=== PATIENT | female | born 1960 | race Caucasian/White ===

== ENCOUNTER → 2020-04-05 13:24 | Outpatient (CLI) | payer OTHER, SELFPAY ==
--- NOTE | ~2020-04-05 | MM_ITS ---
EXAMINATION: MM screening james BI w matt HISTORY: Screening mammogram, family history of breast cancer in her mother. TECHNIQUE: Craniocaudal and mediolateral oblique 3-D tomosynthesis images were obtained and synthetic 2-D images were generated. CAD analysis was submitted and interpreted. COMPARISON: 11/30/2018, 11/26/2017, 11/04/2016 BREAST PARENCHYMAL COMPOSITION: The breasts are heterogeneously dense, which may obscure small masses . FINDINGS: There is no evidence of suspicious mass, calcification, or architectural distortion to sugg est malignancy in either breast. There has been no suspicious interval change. IMPRESSION: 1. No mammographic evidence of malignancy. 2. Recommend routine screening mammography in one year. BI-RADS Category 1: Negative Reviewed, dictated and finalized at location A.
== END ==
PROVIDERS: Visit Provider Nurse Practitioner
DX: Z12.31 Encounter for screening mammogram for malignant neoplasm of breast (principal)
CPT/HCPCS: 77063; 77067

== ENCOUNTER → 2020-05-19 12:29 | Outpatient (CLI) | payer OTHER, SELFPAY ==
--- NOTE | ~2020-05-19 | XR_ITS ---
EXAMINATION: XR elbow LT 2V DATE: 05/19/2020 13:00 INDICATION: Left elbow pain. TECHNIQUE: 2 views of left elbow were obtained. COMPARISON: None. FINDINGS: Bone alignment is normal. No fracture. Joint spaces are well maintained. There is no elbow joint effusion. IMPRESSION: 1. Normal left elbow. Reviewed, dictated and finalized at location A. IMPRESSION: 1. Normal left elbow.
== END ==
PROVIDERS: PCP Emergency Medicine; Visit Provider Emergency Medicine
DX: M25.522 Pain in left elbow (principal)
CPT/HCPCS: 73070

== ENCOUNTER → 2020-11-13 13:04 | Outpatient (CLI) | payer OTHER, SELFPAY ==
--- NOTE | ~2020-11-13 | DEXA_ITS ---
Bone Density Report Name: Theresa Way Age: 60 Sex: Female Ethnicity: White Date of : 1960 Indication: postmenopausal osteoporosis; monitoring treatment; asthma or emphysema; Referring Provider: oSledad, Li Study: Bone densitometry was performed. Exam Date: November 13, 2020 Accession number: [id number] Bone Density: Region BMD T-score Z-score Classification AP Spine (L1-L4) 0.772 -2.5 -1.2 Osteoporosis Femoral Neck (Left) 0.588 -2.4 -1.1 Osteopenia Total Hip (Left) 0.725 -1.8 -0.9 Osteopenia Femoral Neck (Right) 0.600 -2.2 -1.0 Osteopenia Total Hip (Right) 0.710 -1.9 -1.0 Osteopenia Total Hip Mean 0.718 -1.9 -1.0 Osteopenia World Health Organization criteria for BMD impression classify patients as: Normal (T-score at or above -1.0), Osteopenia (T-score between -1.0 and -2.5), or Osteoporosis (T-score at or below -2.5). 10-year Fracture Risk: FRAX not reported because: Some T-score for Spine Total or Hip Total or Femoral Neck at or below -2.5 Treated for osteoporosis Previous Exams: Region Exam Age BMD T-score BMD Change BMD Change Date g/cm2 vs Baseline vs Previous AP Spine(L1-L4) 11/13/2020 60 0.772 -2.5 0.086* 0.053* 10/07/2018 58 0.718 -3.0 0.033* -0.011 09/04/2016 55 0.730 -2.9 0.044* 0.044* 08/08/2014 53 0.685 -3.3 Total Hip(Left) 11/13/2020 60 0.725 -1.8 0.047* 0.020 10/07/2018 58 0.705 -1.9 0.027 0.005 09/04/2016 55 0.700 -2.0 0.022 0.022 08/08/2014 53 0.678 -2.2 Total Hip(Right) 11/13/2020 60 0.710 -1.9 0.013 -0.008 10/07/2018 58 0.718 -1.8 0.020 -0.008 09/04/2016 55 0.725 -1.8 0.028* 0.028* 08/08/2014 53 0.697 -2.0 *Denotes significance at 95% confidence level, LSC for AP Spine = 0.022 g/cm2, LSC for Total Hip = 0.027 g/cm2 Clinical Information Provided by Patient: Is being treated for osteoporosis Has used the following medications: Forteo (i.e. parathyroid hormone), Vitamin D, Calcium Has the following medical conditions: Asthma or Emphysema Patient maximum height was 61.9 Menopause Age: 45 Drinks caffeinated beverages Onset of menses at age 14 Number of children 2 Impression: The patient has osteoporosis, based on the Total Spine T-score. No significant bone loss was observed. Discuss
== END ==
PROVIDERS: PCP Emergency Medicine; Visit Provider Nurse Practitioner
DX: M81.0 Age-related osteoporosis without current pathological fracture (principal); M16.0 Bilateral primary osteoarthritis of hip
CPT/HCPCS: 77080

== ENCOUNTER 2021-01-08 10:27 | Outpatient (CLI) | payer OTHER, SELFPAY | END 2021-01-08 10:28 | disposition home or self-care (01) | LOC: ANHCOVIDVC 10:27 | PROVIDERS: PCP Emergency Medicine | DX: Z23 Encounter for immunization (principal) | CPT/HCPCS: 0001A; 91300 ==

== ENCOUNTER 2021-01-29 09:24 | Outpatient (CLI) | payer OTHER, SELFPAY | END 2021-01-29 09:25 | disposition home or self-care (01) | LOC: ANHCOVIDVC 09:24 | PROVIDERS: PCP Emergency Medicine | DX: Z23 Encounter for immunization (principal) | CPT/HCPCS: 0002A; 91300 ==

== ENCOUNTER → 2021-04-09 10:16 | Outpatient (CLI) | payer OTHER, SELFPAY ==
--- NOTE | ~2021-04-09 | MM_ITS ---
EXAMINATION: MM screening james BI w matt HISTORY: Screening mammogram, family history of breast cancer in her mother. TECHNIQUE: Craniocaudal and mediolateral oblique 3-D tomosynthesis images were obtained and synthetic 2-D images were generated. CAD analysis was submitted and interpreted. COMPARISON: 04/05/2020, 11/30/2018, 11/26/2017 BREAST PARENCHYMAL COMPOSITION: The breasts are heterogeneously dense, which may obscure small masses . FINDINGS: There is no evidence of suspicious mass, calcification, or architectural distortion to sugg est malignancy in either breast. There has been no suspicious interval change. IMPRESSION: 1. No mammographic evidence of malignancy. 2. Recommend routine screening mammography in one year. BI-RADS Category 1: Negative Reviewed, dictated and finalized at location A.
== END ==
PROVIDERS: Visit Provider Nurse Practitioner
DX: Z12.31 Encounter for screening mammogram for malignant neoplasm of breast (principal)
CPT/HCPCS: 77063; 77067

== ENCOUNTER → 2021-09-12 10:46 | Outpatient (CLI) | payer OTHER, SELFPAY ==
--- NOTE | ~2021-09-12 | XR_ITS ---
EXAMINATION: XR chest 2V DATE: 09/12/2021 11:06 INDICATION: Cough and shortness of breath TECHNIQUE: PA and lateral views of the chest are obtained. COMPARISON: None available FINDINGS: The lungs are free of acute opacities. There is no pleural effusion or pneumothorax. The ca rdiomediastinal silhouette is normal. There is moderate thoracic spondylosis. IMPRESSION: 1. No acute cardiopulmonary abnormality. Reviewed, dictated and finalized at location A. 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
== END ==
PROVIDERS: PCP Emergency Medicine; Visit Provider Emergency Medicine
DX: R05.9 Cough, unspecified (principal); M47.814 Spondylosis without myelopathy or radiculopathy, thoracic region
CPT/HCPCS: 71046

== ENCOUNTER → 2022-04-29 12:44 | Outpatient (CLI) | payer OTHER, SELFPAY ==
--- NOTE | ~2022-04-29 | MM_ITS ---
EXAMINATION: MM screening james BI w matt HISTORY: Screening TECHNIQUE: Craniocaudal and mediolateral oblique 3-D tomosynthesis images were obtained and synthetic 2-D images were generated. CAD analysis was submitted and interpreted. COMPARISON: Comparison to multiple prior studies sequentially, with oldest reviewed study dated 10/18. BREAST PARENCHYMAL COMPOSITION: The breasts are heterogeneously dense, which may obscure small masses . FINDINGS: There is no evidence of suspicious mass, calcification, or architectural distortion to sugg est malignancy in either breast. There has been no suspicious interval change. IMPRESSION: 1. No mammographic evidence of malignancy. 2. Recommend routine screening mammography in one year. BI-RADS Category 1: Negative Reviewed, dictated and finalized at location A.
== END ==
PROVIDERS: PCP Emergency Medicine; Visit Provider Nurse Practitioner
DX: Z12.31 Encounter for screening mammogram for malignant neoplasm of breast (principal)
CPT/HCPCS: 77063; 77067

== ENCOUNTER → 2022-11-14 10:19 | Outpatient (CLI) | payer OTHER, SELFPAY ==
--- NOTE | ~2022-11-14 | DEXA_ITS ---
Bone Density Report Name: XIOMARA AYON Age: 62 Sex: Female Ethnicity: White Date of : 1960 Indication: postmenopausal osteoporosis; monitoring treatment; asthma or emphysema; Referring Provider: Soledad, Li Study: Bone densitometry was performed. Exam Date: November 14, 2022 Accession number: [id number] Bone Density: Region BMD T-score Z-score Classification AP Spine (L1-L4) 0.709 -3.1 -1.6 Osteoporosis Femoral Neck (Left) 0.542 -2.8 -1.4 Osteoporosis Total Hip (Left) 0.672 -2.2 -1.2 Osteopenia Femoral Neck (Right) 0.582 -2.4 -1.1 Osteopenia Total Hip (Right) 0.706 -1.9 -0.9 Osteopenia Total Hip Mean 0.689 -2.1 -1.1 Osteopenia World Health Organization criteria for BMD impression classify patients as: Normal (T-score at or above -1.0), Osteopenia (T-score between -1.0 and -2.5), or Osteoporosis (T-score at or below -2.5). 10-year Fracture Risk: FRAX not reported because: Some T-score for Spine Total or Hip Total or Femoral Neck at or below -2.5 Treated for osteoporosis Previous Exams: Region Exam Age BMD T-score BMD Change BMD Change Date g/cm2 vs Baseline vs Previous AP Spine(L1-L4) 11/14/2022 62 0.709 -3.1 0.023* -0.063* 11/13/2020 60 0.772 -2.5 0.086* 0.053* 10/07/2018 58 0.718 -3.0 0.033* -0.011 09/04/2016 55 0.730 -2.9 0.044* 0.044* 08/08/2014 53 0.685 -3.3 Total Hip(Left) 11/14/2022 62 0.672 -2.2 -0.006 -0.053* 11/13/2020 60 0.725 -1.8 0.047* 0.020 10/07/2018 58 0.705 -1.9 0.027 0.005 09/04/2016 55 0.700 -2.0 0.022 0.022 08/08/2014 53 0.678 -2.2 Total Hip(Right) 11/14/2022 62 0.706 -1.9 0.009 -0.004 11/13/2020 60 0.710 -1.9 0.013 -0.008 10/07/2018 58 0.718 -1.8 0.020 -0.008 09/04/2016 55 0.725 -1.8 0.028* 0.028* 08/08/2014 53 0.697 -2.0 *Denotes significance at 95% confidence level, LSC for AP Spine = 0.022 g/cm2, LSC for Total Hip = 0.027 g/cm2 Clinical Information Provided by Patient: Is being treated for osteoporosis Has used the following medications: Prolia (i.e. denosumab), Vitamin D, Calcium, MTV Has the following medical conditions: Asthma or Emphysema Patient maximum height was 61.9 Menopause Age: 45 Drinks caffeinated beverages Onset of menses at age 14 Number of children 2 -
== END ==
PROVIDERS: PCP Nurse Practitioner; Visit Provider Nurse Practitioner
DX: Z78.0 Asymptomatic menopausal state (principal); M85.89 Other specified disorders of bone density and structure, multiple sites; M81.0 Age-related osteoporosis without current pathological fracture
CPT/HCPCS: 77080

== ENCOUNTER → 2023-07-16 11:28 | Outpatient (CLI) | payer OTHER, SELFPAY ==
--- NOTE | ~2023-07-16 | MM_ITS ---
EXAMINATION: MM screening james BI w matt HISTORY: Screening TECHNIQUE: Craniocaudal and mediolateral oblique 3-D tomosynthesis images were obtained and synthetic 2-D images were generated. CAD analysis was submitted and interpreted. COMPARISON: Comparison to multiple prior studies sequentially, with oldest reviewed study dated 02/2017. BREAST PARENCHYMAL COMPOSITION: The breasts are heterogeneously dense, which may obscure small masses . FINDINGS: There is no evidence of suspicious mass, calcification, or architectural distortion to sugg est malignancy in either breast. There has been no suspicious interval change. IMPRESSION: 1. No mammographic evidence of malignancy. 2. Recommend routine screening mammography in one year. BI-RADS Category 1: Negative Reviewed, dictated and finalized at location A.
== END ==
PROVIDERS: PCP Nurse Practitioner; Visit Provider Nurse Practitioner
DX: Z12.31 Encounter for screening mammogram for malignant neoplasm of breast (principal)
CPT/HCPCS: 77063; 77067

== ENCOUNTER 2024-05-26 10:53 | Outpatient (CLI) | payer OTHER, SELFPAY ==
--- NOTE | ~2024-05-26 | XR_ITS ---
Lumbosacral Spine: AP, oblique, and lateral views Clinical History: Pain Findings: The normal lordotic curve is maintained. The vertebral bodies and posterior elements are i ntact. The intervertebral disc spaces are preserved. There is mild facet arthropathy and lumbar spin e. The sacroiliac joints are normally outlined. Impression: Mild facet arthropathy throughout the lumbar spine. Reviewed, dictated and finalized at location . Impression: Mild facet arthropathy throughout the lumbar spine.
== END 2024-05-26 10:54 ==
PROVIDERS: PCP Obstetrics & Gynecology Gynecology; Visit Provider Emergency Medicine
DX: M47.896 Other spondylosis, lumbar region (principal)
CPT/HCPCS: 72110

== ENCOUNTER 2024-06-17 09:28 | Observation (INO) | payer OTHER, SELFPAY ==
[2024-06-17] VITALS (14 sets, daily range): BP systolic 125–172; BP diastolic 62–85; PULSE 68–98; RESP 16–20; TEMP 36.4–36.9; O2SAT 95–100; BMI 20.5
--- NOTE | ~2024-06-17 | CT_ITS ---
EXAMINATION: CT lumbar spine w con DATE: 06/17/2024 13:37 INDICATION: Back pain. TECHNIQUE: Computed tomography (CT) of the lumbar spine was performed with 100 mL Omnipaque 350 intra venous contrast. Automated exposure control and iterative reconstruction technique were employed. The dose-length product was 170.50 mGy-cm. COMPARISON: Lumbar spine radiographs 05/26/2024 FINDINGS: There is 4 degrees dextrocurvature of lumbar spine. There is diffuse osteopenia. There are scattered lytic lesions of bone including in the sacrum, L5 and L3 posterior elements, and L1 vertebr al body. There is a pathologic compression fracture of inferior plate of L1 with 2/5 loss of height. There is mildly decreased disc height at L1-L2 and L4-L5. The following disc levels are specifically discussed: L1-L2: The disc does not extend beyond the endplate margin. There is mild bilateral facet joint osteo arthritis. There is no neural foraminal stenosis. There is no central canal stenosis. L2-L3: The disc is bulging. There is mild bilateral facet joint osteoarthritis. There is mild bilater al neural foraminal stenosis. There is mild central canal stenosis. L3-L4: The disc is bulging. There is mild bilateral facet joint osteoarthritis. There is mild bilater al neural foraminal stenosis. There is mild central canal stenosis. L4-L5: The disc is bulging. There is moderate bilateral facet joint osteoarthritis. There is mild aleja ateral neural foraminal stenosis. There is mild central canal stenosis. L5-S1: The disc is bulging. There is mild lateral facet joint osteoarthritis. There is moderate bilat eral neural foraminal stenosis. There is mild central canal stenosis. IMPRESSION: 1. Widespread bone lesions, consistent with multiple myeloma versus metastatic disease. Pathologic co mpression fracture of L1. 2. Mild lumbar spondylosis. Reviewed, dictated and finalized at location A. IMPRESSION: 1. Widespread bone lesions, consistent with multiple myeloma versus metastatic disease. Pathologic compression fracture of L1. 2. Mild lumbar spondylosis.
--- NOTE | ~2024-06-17 | CT_ITS ---
EXAMINATION: CT chest abdomen pelvis w con DATE: 06/18/2024 08:37 INDICATION: Metastatic disease TECHNIQUE: Computed tomography (CT) of the chest, abdomen, and pelvis was performed with 100 mL Omnip aque-350 intravenous contrast. Automated exposure control and iterative reconstruction technique were employed. The dose-length product was 249.41 mGy-cm. COMPARISON: None FINDINGS: CHEST CT: Mild biapical pleural-parenchymal scarring. There are a few scattered <4 mm calcified and noncalcifie d pulmonary nodules. No pneumonia, pulmonary edema or pleural effusion. Heart size is normal. No casper cardial or pleural effusion. No pathologically enlarged thoracic lymphadenopathy. Moderate thoracic s pondylosis. There is diffuse osteopenia with multiple generally small scattered lytic bone lesions us ing a moth-eaten appearance to the bones at the axial and appendicular skeleton. ABDOMEN/PELVIS CT: There is a somewhat heterogeneous enhancement pattern to the liver with relatively diffuse nonmasslik e increased attenuation at the periphery of the liver most prominent at the caudal aspect of the righ t hepatic lobe with lower attenuation of the central liver when compared with the spleen suggesting d iffuse hepatic steatosis with focal peripheral sparing. There are 2 well-defined small low-attenuatio n hepatic cysts the largest measuring 1 cm in maximal diameter. Likely vicarious excreted contrast in the dependent aspect of the otherwise normal gallbladder. Spleen, pancreas, bilateral adrenal glands and kidneys are normal. Bowels including the appendix are normal. Bladder is normal. Atrophic uterus and bilateral adnexa are unremarkable. No free intraperitoneal gas or fluid. No pathologically enlar ged abdominal or pelvic lymphadenopathy. Similar diffuse osteopenia with moth-eaten appearance to the bones. There are also localized intramed ullary regions with greater than simple soft tissue density suggesting enhancing soft tissue most pro minent at the bilateral sacral ala, left anterior and posterior iliac spines, right posterior iliac s pine and right supra-acetabular regions suspicious for infiltrating process. There is a larger lytic lesion with central soft tissue density at the left inferior aspect of the L1 vertebral body with ass ociated likely pathologic localized inferior endplate compression fracture overlying the lytic lesion . There is also a lytic lesion eroding the cortices at the junction of the spinous process and pedicl es of L5 with extension of enhancing soft tissue beyond the margins of the bones consistent with kami gnancy. IMPRESSION: 1. Prominent diffuse osteopenia with numerous small lytic lesions giving a somewhat moth-eaten appear ance to the bones with associated patchy regions of enhancing marrow suspicious for one infiltrative osteolytic process most likely multiple myeloma although differential would include other metastatic disease. No lesion suspicious for primary malignancy however identified in the chest, abdomen or pelv is. Consider bone marrow biopsy for pathologic correlation. 2. A few scattered <4 mm calcified and noncalcified lung nodules most likely sequela of old granuloma tous disease. If the patient is low risk for lung cancer, no follow-up is needed. If the patient is h igh risk (i.e., history of smoking or asbestos or significant radiation exposure), optional follow-up chest CT could be considered at 12 months. 3. Diffuse hepatic steatosis with peripheral relative fatty sparing. Reviewed, dictated and finalized at location B. IMPRESSION: 1. Prominent diffuse osteopenia with numerous small lytic lesions giving a some what moth-eaten appearance to the bones with associated patchy regions of enhan cing marrow suspicious for one infiltrative osteolytic process most likely mult
--- NOTE | ~2024-06-17 | XR_ITS ---
COMPLETE BONE SURVEY Ordering provider: Eldon Whalen MD History: 63 years Female with . Bone metastasis . Comparison: FINDINGS: Chest: Normal. Cervical spine: Osteopenia of the bones. Degenerative changes with degenerative disc disease at the l evel of C5-C6. Osteolytic lesion seen in the spinous processes. Skeletal multiple lytic lesions suggestive of multiple myeloma in the skull, right humerus, left roberto gladys, right femur, left femur, thoracic spine, right radius, and left radius, IMPRESSION: 1. Multiple osteolytic lesion suggestive of multiple myeloma. Reviewed, dictated and finalized at location A.
[2024-06-17] MEDS: MORPHINE SULFATE (*CRX) 4 MG/ML INJ IV PUSH (11:11)
[2024-06-17] MEDS: methylPREDNISolone SOD SUCC 125 MG VIAL IV PUSH (11:12)
[2024-06-17 11:17] LABS: Basophils Percent Auto 1.1 % (0.2-1.2); Eosinophils Absolute Auto 0.1 K/mm3 (0-0.3); Eosinophils Percent Auto 1.4 % (0-4.4); Hematocrit 27.3 % (37.0-47.0); Hemoglobin 9.1 g/dL (12.0-15.0); Immature Granulocyte Absolute 0.02 K/mm3 (0.00-0.031); Immature Granulocyte Percent A 0.5 % (0-0.5); Lymphocytes Absolute Auto 1.07 K/mm3 (0.9-3.2); Lymphocytes Percent Auto 29.2 % (18.3-44.2); Mean Corpuscular HGB Conc 33.3 g/dl (32-36); Mean Corpuscular Hemoglobin 31.8 pg (26-34); Mean Corpuscular Volume 95.5 fl (80-100); Mean Platelet Volume 9.3 fl (7.4-10.4); Monocytes Absolute Auto 0.4 K/mm3 (0.1-0.6); Monocytes Percent Auto 11.7 % (2.6-8.5); Neutrophils Absolute Auto 2.1 K/mm3 (1.3-6.7); Neutrophils Percent Auto 56.1 % (45.5-73.1); Platelet Count Result 249 k/mm3 (150-375); Red Blood Count 2.86 M/mm3 (4.2-5.4); Red Cell Distribution Width 13.8 % (11.5-14.5); White Blood Count 3.7 K/mm3 (4.5-10.0)
[2024-06-17 12:31] LABS: Alanine Aminotransferase 26 U/L (6-35); Albumin Level 3.6 g/dL (3.5-5.1); Alkaline Phosphatase 77 U/L (38-126); Aspartate Amino Transferase 41 U/L (14-36); Bilirubin,Total 0.5 mg/dL (0.2-1.3); Blood Urea Nitrogen 20 mg/dL (7-17); Calcium 8.8 mg/dL (8.4-10.2); Carbon Dioxide 19 mmol/L (22-30); Chloride 98 mmol/L (98-107); Estimated CRCL calculation 36 ml/min; Estimated Glomerular Filt Rate 50; Glucose 111 mg/dL (65-110); Potassium 4.6 mmol/L (3.4-5.0)
[2024-06-17 12:39] LABS: Anion Gap 9 mmol/L (4-12); Sodium 126 mmol/L (137-145)
--- NOTE | 2024-06-17 12:56 | ED.BACK ---
HPI - Back Pain/Injury General Chief Complaint: Back Pain/Injury <Liset Rey APRN - Last Filed: 06/17/24 16:59> Stated Complaint: back pain, tingling left buttock <Liset Rey APRN - Last Filed: 06/17/24 16:59> Time Seen by Provider: 06/17/24 10:04 <Liset Rey APRN - Last Filed: 06/17/24 16:59> History of Present Illness HPI Narrative: Patient is a 63-year-old female who presents to the ER complaints of chronic back pain. She reports she was seen by her primary care doctor about a month ago and they diagnosed her with strain. Her provider put her Toradol but she has continued to have worsening pain. She has been diagnosed in the past with her osteoporosis and lower lumbar arthritis. Patient also reports she had a reaction to her osteoporosis medication back in August. She denies chest pain, shortness a breath or other signs of illness. <Liset Rey APRN - Last Filed: 06/17/24 16:59> MD elicited complaint: back pain <Liset Rey APRN - Last Filed: 06/17/24 16:59> Pertinent past history: prior back pain and arthritis <Liset Rey APRN - Last Filed: 06/17/24 16:59> Onset (ago): week(s) (5-6) <Liset Rey APRN - Last Filed: 06/17/24 16:59> Timing: constant <Liset Rey APRN - Last Filed: 06/17/24 16:59> Severity: severe <Liset Rey APRN - Last Filed: 06/17/24 16:59> Pain scale (0-10): 10 <Liset Rey APRN - Last Filed: 06/17/24 16:59> Similar Symptoms Previously: Yes <Liset Rey APRN - Last Filed: 06/17/24 16:59> Quality: crushing and throbbing <Liset Rey APRN - Last Filed: 06/17/24 16:59> Related Data Home Medications: Home Medications Medication Instructions Recorded Confirmed calcium carbonate (Calcium 500) 1,200 mg PO DAILY 05/17/20 06/17/24 cetirizine 10 mg tablet (Zyrtec) 10 mg PO DAILY 05/17/20 06/17/24 mirabegron 50 mg tablet,extended 50 mg PO DAILY 05/17/20 06/17/24 release 24 hr (Myrbetriq) budesonide-formoterol HFA 160 2 puff inhalation Q12H PRN short 06/17/24 06/17/24 mcg-4.5 mcg/actuation aerosol of breath inhaler cyclobenzaprine 5 mg tablet 5 mg PO TID PRN Muscle Spasm 06/17/24 06/17/24 fluticasone propionate 50 See Rx Instructions .Route 06/17/24 06/17/24 mcg/actuation nasal .COMPLEX PRN seasonal allergies spray,suspension naproxen 500 mg tablet 500 mg PO BID PRN Pain 06/17/24 06/17/24 <Liset Rey APRN - Last Filed: 06/17/24 16:59> Allergies/Adverse Reactions: Allergies Allergy/AdvReac Type Severity Reaction Status Date / Time Penicillins Allergy Unknown unknown Verified 06/17/24 18:32 nut - unspecified Allergy Itching Verified 06/17/24 18:32 <Liset Rey APRN - Last Filed: 06/17/24 16:59> Review of Systems Review of Systems: All systems reviewed & are unremarkable except as noted in HPI and below <Liset Rey APRN - Last Filed: 06/17/24 16:59> [facility] Past Medical History Medical History: Medical History Asthma Cataract, left eye Chronic frontal sinusitis Fatigue Mixed stress and urge urinary incontinence Osteoporosis Other bursal cyst, right ankle and foot Shingles (2022) Urticaria Vitamin D deficiency disease <Liset Rey APRN - Last Filed: 06/17/24 16:59> Surgical History Surgical History: Surgical History History of (1993) <Liset Rey APRN - Last Filed: 06/17/24 16:59> Social History Social History: Social History Smoking status: Never smoker Second hand tobacco smoke exposure: No Alcohol intake: current Drinks per week: 1 Substance use: current Substance use type: marijuana Other substance usage details: Takes half of a gummy for pain Do You
[2024-06-17] MEDS: SODIUM CHLORIDE 0.9% IV 1,000 ML 999 ML IV CONT (13:09)
[2024-06-17 14:09] LABS: Add Urine Microscopic? YES; Appearance Urine Clear (Clear); Bacteria Urine None Seen /hpf; Bilirubin Urine Negative (Negative); Blood Urine Trace (Negative); Color Urine Yellow (Yellow); Glucose Urine UA Negative (Negative); Ketones Urine Negative (Negative); Leukocyte Esterase Ur Negative LEU/UL (Negative); Nitrate Urine Negative (Negative); Non Pathogenic Casts 0-2; Protein Urine Trace mg/dL (Negative); RBC Urine 0-2 /hpf (0-2); Specific Grav Ur 1.014 (1.001-1.035); Squamous Epithelial Cell Urine None Seen /hpf (Few); Urobilinogen Urine 0.2 mg/dL (<2.0); WBC Urine 0-5 /hpf (0-3)
--- NOTE | 2024-06-17 17:49 | ADMGEN ---
This patient, Theresa Way, was admitted to [facility] Room 307-01. Patient/family oriented to hospital policies and general routines including ID bracelet, bed and alarms, visiting hours, pain management, procedures, bathroom and other care routines, personal items, smoking policy, room service/diet, and visiting hours. Information on how to activate the Rapid Response Team has been discussed. Patient/Family are encouraged to report perceived risks to care and to ask questions if they do not understand what they are told or what they should do.
--- NOTE | 2024-06-17 18:12 | PDONCCN ---
[facility] - Date of Consult Date/Time: 06/17/24 18:12 Requesting Physician: Chin Eubanks MD Primary Care Provider: Pooja Sandy MD - Consult Narrative Reason for consult: Bone metastasis Narrative: Theresa Way is a 63 year old female without any 5 previous history of malignancy but history of asthma chronic sinusitis osteoporosis came into the hospital with mid back pain started about 4-5 weeks ago treated with anti-inflammatory without much relief. This morning she was not able to move CT scan of the lumbar spine was performed that showed widespread bone lesions consistent with multiple myeloma versus metastatic disease along with pathological compression fracture of L1. She denies any history of smoking but was exposed to secondhand smoking from the mother. Her mother was also diagnosed with breast cancer. Patient had sister diagnosed with uterus cancer at age of 30. She denies any weight loss. Denies any diarrhea and constipation. No melena hematochezia denies any shortness of breath and chest pain. No neural and lymphadenopathy. No other new complaints. Review of Systems - Review of Systems All systems reviewed & are unremarkable except as noted in HPI and [facility] Medical History: Medical History (Last Reviewed 06/17/24 @ 16:29 by Liset Rey APRN) Asthma due to seasonal allergies Chronic frontal sinusitis Fatigue Mild intermittent asthma without complication Mixed stress and urge urinary incontinence Osteoporosis Other bursal cyst, right ankle and foot Urticaria Vitamin D deficiency disease - Social History Social History: Social History (Last Reviewed 06/17/24 @ 16:29 by Liset Rey APRN) Alcohol Use: Alcohol intake: current Smoking Status: Smoking status: Never smoker Second hand tobacco smoke exposure: No Social Determinants of Health: Do You Feel Safe in your Home?: Yes Has the Lack of Transportation Kept You From Medical Appointments or From Getting Medications?: No Within the Past 12 Months, Were You Worried Whether Your Food Would Run Out Before You Got Money to Buy More?: Never True What is Your Housing Situation Today?: I Have Housing Are You Worried That in the Next 2 Months, You May Not Have Your Own Housing to Live In?: No Do You Have Trouble Paying Your Heating Or Electricity Bill?: No Do You Have Trouble Paying For Medicines?: No Are You Currently Unemployed and Looking for Work?: No Highest Level of Education Completed: Trade/Vocational Certific Do You Have Trouble With Childcare or the Care of a Family Member?: No Exam - Vital Signs Vital Signs - 24 hr 06/17/24 09:36 06/17/24 11:19 06/17/24 09:44 Temperature 36.6 C Pulse Rate 75 82 70 Respiratory Rate 16 20 18 Blood Pressure 131/67 146/69 H 131/67 Pulse Oximetry 100 99 100 Oxygen Delivery Room Air 06/17/24 10:31 06/17/24 11:01 06/17/24 11:31 Temperature Pulse Rate 68 77 70 Respiratory Rate 18 20 20 Blood Pressure 139/67 146/69 H 138/66 Pulse Oximetry 100 100 99 Oxygen Delivery 06/17/24 12:01 06/17/24 13:01 06/17/24 13:58 Temperature Pulse Rate 68 77 77 Respiratory Rate 16 18 18 Blood Pressure 125/69 137/63 134/68 Pulse Oximetry 98 100 100 Oxygen Delivery 06/17/24 14:31 06/17/24 15:31 06/17/24 17:45 Temperature 36.9 C Pulse Rate 98 80 85 Respiratory Rate 20 18 16 Blood Pressure 172/85 H 152/79 H 151/62 H Pulse Oximetry 95 100 98 Oxygen Delivery - Exam HEENT: EOMI, PERRLA Neck: supple Lungs: clear to auscultation, normal air movement Heart: no murmurs, gallops, or rubs, regular rhythm Abdomen: abdomen soft, non-distended, normal bowel sounds Extremities: normal pulses Integumentary: no abnormalities Neurological: normal speech Psychological: mental status NL, mood NL - Lab Results Laboratory Last Values WBC 3.7 K/mm3 (4.5-10.0) L 06/17/24 11:06 RBC 2.86 M/mm3 (4.2-5.4)
--- NOTE | 2024-06-17 18:27 | PM.IMHP ---
H&P: HPI History of Present Illness Date/Time: 06/17/24 18:27 Chief Complaint: Back Pain Narrative: 63 y/o F presents here with low back pain with PMH of asthma, mixed stress/urge incontinence, osteoporosis, and vitamin-D deficiency. The patient presents here for for further evaluation of lower left back pain. She reports onset of low back pain approximately 5-6 weeks ago. No precipitating trauma or injury. Patient does report she had spent the day weeding and cleaning her home when the pain started later that day. Patient has been taking antiinflammatories and a muscle relaxer given to her by her PCP without relief. PCP then ordered imaging. XR of the lumbar spine done on 05/26/2024 which showed mild facet arthropathy throughout the lumbar spine. Patient was not prescribed PT and she has been attending physical therapy 2 times per week for 2 weeks (total of 4) with no improvement. Denies focal numbness, focal weakness, loss of bowel or bladder. Endorsing night sweats starting last night, however diaphoresis/clamminess started after she tweaked her back when going to the restroom. Patient also felt nauseated, no vomiting. Symptoms have since resolved without intervention. She denies unintentional weight loss or easy bruising. Denies personal history of cancer. Reports the following family history of cancer: mom - breast cancer in her 70s, sister - cervical cancer in her 30s. Initial VS at presentation: 97.8? F, HR 75, RR 16, 131/67, and 100% on RA ED workup showed: WBC 3.7, hemoglobin 9.1, platelet count WNL, sodium 126, creatinine 1.1 and GFR 50 (no previous available for comparison), and UA unremarkable. CT of the lumbar spine showed widespread bone lesions consistent with multiple myeloma versus metastatic disease, pathologic compression fracture of L1, and mild lumbar spondylosis. Review of Systems Review of Systems: All systems reviewed & are unremarkable except as noted in HPI and below PMFSH Past Medical History Medical History Asthma Cataract, left eye Chronic frontal sinusitis Fatigue Mixed stress and urge urinary incontinence Osteoporosis Other bursal cyst, right ankle and foot Shingles (2022) Urticaria Vitamin D deficiency disease Surgical History Surgical History History of (1993) Social History Social History Smoking status: Never smoker Second hand tobacco smoke exposure: No Alcohol intake: current Drinks per week: 1 Substance use: current Substance use type: marijuana Other substance usage details: Takes half of a gummy for pain Do You Feel Safe in your Home?: Yes Lack of Transportation: No Lack of Food: Never True Current Housing: I Have Housing Concerned About Future Housing: No Difficulty Paying Gas/Electric Bills: No Difficulty Paying for Meds: No Currently Unemployed: No Education: Trade/Vocational Certificate Difficulty w/ Childcare or Family Care: No Spiritual care concerns: No Meds Home Medications and Allergies Home Medications Medication Instructions Recorded Confirmed Type calcium carbonate (Calcium 500) 1,200 mg PO DAILY 05/17/20 06/17/24 History cetirizine 10 mg tablet (Zyrtec) 10 mg PO DAILY 05/17/20 06/17/24 History mirabegron 50 mg tablet,extended 50 mg PO DAILY 05/17/20 06/17/24 History release 24 hr (Myrbetriq) albuterol sulfate 90 mcg/actuation 2 puff inhalation Q4-6H PRN 10/06/23 06/17/24 Rx aerosol inhaler (Proventil HFA) shortness of breath or wheezing #8.5 grams budesonide-formoterol HFA 160 2 puff inhalation Q12H PRN short 06/17/24 06/17/24 History mcg-4.5 mcg/actuation aerosol of breath inhaler cyclobenzaprine 5 mg tablet 5 mg PO TID PRN Muscle Spasm 06/17/24 06/17/24 History fluticasone propionate 50 See Rx Instructions .Route
[2024-06-17] MEDS: HYDROcodone/acetaminophen (*CRX) 5-325 MG TABLET 1 TAB PO (20:03)
[2024-06-17] MEDS: ALPRAZolam (*CRX) 0.125 MG TABLET PO (20:42)
[2024-06-18 06:00] VITALS: BP 128/57; PULSE 77; RESP 20; TEMP 36.2; O2SAT 100
[2024-06-18] MEDS: HYDROcodone/acetaminophen (*CRX) 5-325 MG TABLET 1 TAB PO ×2 (06:02→11:36)
[2024-06-18 06:26] LABS: Iron 110 ug/dL (37-170)
[2024-06-18 06:35] LABS: Percent Iron Saturation 52 % (20-50)
[2024-06-18 07:10] LABS: Immunoglobulin A < 40 mg/dL (70-400); Immunoglobulin M < 25 mg/dL (40-230)
[2024-06-18 08:59] LABS: Immunoglobulin G 7884 mg/dL (700-1600)
[2024-06-18] MEDS: CALCIUM CARBONATE (OSCAL) 500 MG TABLET 1000 MG PO (09:01)
[2024-06-18] MEDS: polyethylene glycoL 3350 17 GM POWD.PACK PO (09:01)
[2024-06-18] MEDS: LORATADINE 10 MG TABLET PO (09:01)
[2024-06-18] MEDS: MIRABEGRON 50 MG ER TABLET PO (09:01)
[2024-06-18 14:00] VITALS: BP 150/63; PULSE 95; RESP 20; TEMP 36.7; O2SAT 100
--- NOTE | 2024-06-18 14:18 | PM.DS ---
DS: Admitting Diagnosis Discharge Date 06/18/24 Admitting Diagnosis Malignancy Back pain DS: Summary Hospital Course Reason for hospitalization: Malignancy Back pain Hospital Course: This is a 63-year-old female who presented lower left back pain. Workup in the hospital included lumbar spine 9 CT shown widespread bone lesions consistent with multiple myeloma versus metastatic disease, pathological compression fracture of L1, mild lumbar spondylosis. Skeletal survey showing multiple osteolytic lesion suggestive of multiple myeloma. Chest/abdomen/pelvis CT shown prominent diffuse osteopenia with numerous small lytic lesions giving a somewhat month Norma appearance to the bones with associated patchy regions enhanced marrow suspicious for 1 infiltrative osteolytic process most likely multiple myeloma although differential would include other metastatic disease, a few scattered calcified and noncalcified lung nodules were noted, diffuse hepatic steatosis. Initial labs showed a white blood cell count of 3.7, RBC 2.86, hemoglobin 9.1, sodium 126, bicarb 19, creatinine 1.1, EGFR 50, AST 41, total protein 13.0, calcium 8.8. Vitamin B12 and folate were obtained and are pending, iron 110, ferritin 85.8. UA was obtained and was negative. IgG 7884, IgA less than 40 IgM less than 25. Pain medication and a muscle relaxer was given while in the ED. Oncology was consulted and recommends outpatient workup. Patient is stable for discharge at this time. She will need to follow up with Oncology in the next week for results of her pending labs. Final diagnosis: Lytic bone lesions, compression fracture, osteopenia Status at Discharge Cognitive/behavioral status at discharge: Alert oriented x3 Functional status at discharge: independent ambulation Overall status at discharge: patient is progressing back to baseline Time Spent with Patient Time attestation: Total time spent providing and/or coordinating discharge services: Time spent: Greater than 30 minutes Exam Narrative: General: In no acute distress, well nourished Head: atraumatic, no encephalopathy Eyes: EOMI, PERRLA, sclera clear ENT: moist mucous membranes, nasal passages clear Neck: supple, no JVD, no adenopathy, trachea midline Cardiac: Normal S1 and S2. No murmur, gallops or friction rubs, peripheral pulses intact. Respiratory: Lungs clear to auscultation, no adventitious lung sounds, currently on room air Gastrointestinal: soft, non-distended, non-tender, normoactive bowel sounds. : voiding without difficulty. Extremities: moves all extremities well, no edema, good ROM, strength 5/5 Skin: clean, dry, intact. No wounds or lesions. Neuro: Alert and oriented x4, cranial nerves intact, no neuro deficits. Psych: normal mood, normal affect, interactive DS: Data Data Completed and Pending Completed studies during hospitalization: Lumbar spine CT Skeletal survey Chest/abdomen/pelvis CT Pending studies at discharge: None Labs on day of discharge: Labs from last 24 hours 06/18/24 06/18/24 05:55 05:52 Iron 110 TIBC 212 L % Saturation 52 H Ferritin 85.80 Vitamin B12 Pending Folate Pending IgG 7884 H IgA < 40 L IgM < 25 L Serum Immunofixation Pending [place]/Lambda Ratio Pending Free [place] Light Chains Pending Free Lambda Light Chain Pending Ref Lab Test Name Pending Ref Lab Test Result Pending Procedures/Treatments: None Discharge Plan Discharge Attending physician on discharge: Angel Irizarry Consulting providers: Eldon Whalen; Fabiola Lopez Discharging Clinician: Tr Arnold V. Anticipated Discharge Date/Time: 06/18/24 14:09 Patient Disposition: Home, Self-Care Activity: as tolerated Diet: as tolerated Discharge Instructions: Follow-up with Dr. Whalen in 1 week Patient Instructions: Antibiotic Form, Multiple Myeloma (DC), Vertebral Compression Fracture (DC), Osteopenia (GEN) Patient Language:
[2024-06-22 13:18] LABS: Kappa\\Lambda Light Chains >84.93 (0.26-1.65); Lambda Light Chain <1.5 mg/L (5.7-26.3)
[2024-06-29 09:03] LABS: Reference Lab Test Name VIT B12 FOL
== END 2024-06-18 15:20 | disposition home or self-care (01) ==
LOC: ANHED 16:59 → ANH3MEDSUR 06-18 07:30
PROVIDERS: Internal Medicine Hematology & Oncology; Admitting Provider Family Medicine; Emergency Provider Registered Nurse; PCP Obstetrics & Gynecology Gynecology; Visit Provider Internal Medicine
DX: C79.51 Secondary malignant neoplasm of bone (principal); M84.48XA Pathological fracture, other site, initial encounter for fracture; C80.1 Malignant (primary) neoplasm, unspecified; M54.50 Low back pain, unspecified; M47.816 Spondylosis without myelopathy or radiculopathy, lumbar region; M81.0 Age-related osteoporosis without current pathological fracture; J45.909 Unspecified asthma, uncomplicated; E55.9 Vitamin D deficiency, unspecified; N39.46 Mixed incontinence; F12.90 Cannabis use, unspecified, uncomplicated; Z79.51 Long term (current) use of inhaled steroids
CPT/HCPCS: 36415; 71260; 72132; 74177; 77075; 80053; 81001; 82607; 82728; 82746; 82784; 83540; 83550; 83883; 85025; 86334; 96361; 96374; 96375; 99285; A9270; G0378; J2270; J2919; J7030; Q9967

== ENCOUNTER 2024-07-19 10:45 | Outpatient (CLI) | payer OTHER, SELFPAY ==
--- NOTE | ~2024-07-19 | MM_ITS ---
EXAMINATION: MM screening [facility] BI w matt HISTORY: Screening TECHNIQUE: Craniocaudal and mediolateral oblique 3-D tomosynthesis images were obtained and synthetic 2-D images were generated. CAD analysis was submitted and interpreted. COMPARISON: Comparison to multiple prior studies sequentially, with oldest reviewed study dated 11/26. BREAST PARENCHYMAL COMPOSITION: Not dense: There are scattered areas of fibroglandular density. FINDINGS: There is no evidence of suspicious mass, calcification, or architectural distortion to sugg est malignancy in either breast. There has been no suspicious interval change. IMPRESSION: 1. No mammographic evidence of malignancy. 2. Recommend routine screening mammography in one year. BI-RADS Category 1: Negative Reviewed, dictated and finalized at location B.
== END 2024-07-19 10:46 | disposition home or self-care (01) ==
LOC: MICIMG 10:46
PROVIDERS: PCP Emergency Medicine; Visit Provider Nurse Practitioner
DX: Z12.31 Encounter for screening mammogram for malignant neoplasm of breast (principal)
CPT/HCPCS: 77063; 77067

== ENCOUNTER 2025-07-25 10:08 | Outpatient (CLI) | payer OTHER, SELFPAY ==
--- NOTE | ~2025-07-25 | MM_ITS ---
EXAMINATION: MM screening [facility] BI w matt HISTORY: Screening TECHNIQUE: Craniocaudal and mediolateral oblique 3-D tomosynthesis images were obtained and synthetic 2-D images were generated. CAD analysis was submitted and interpreted. COMPARISON: Comparison to multiple prior studies sequentially, with oldest reviewed study dated 11/30/2018. BREAST PARENCHYMAL COMPOSITION: Not dense: There are scattered areas of fibroglandular density. FINDINGS: There is no evidence of suspicious mass, calcification, or architectural distortion to suggest malignancy in either breast. There has been no suspicious interval change. IMPRESSION: 1. No mammographic evidence of malignancy. 2. Recommend routine screening mammography in one year. BI-RADS Category 1: Negative Reviewed, dictated and finalized at location B.
== END 2025-07-25 10:09 | disposition home or self-care (01) ==
PROVIDERS: PCP Internal Medicine; Visit Provider Obstetrics & Gynecology Gynecology
DX: Z12.31 Encounter for screening mammogram for malignant neoplasm of breast (principal)
CPT/HCPCS: 77063; 77067